=== PATIENT | male | born 1955 | race Caucasian/White ===

== ENCOUNTER 2017-05-08 15:17 | Emergency (ER) | payer OTHER ==
[~2017-05-08] VITALS: Ht 170.2 cm; Wt 78.9 kg
[2017-05-08 15:26] VITALS: Ht 170.2 cm; Wt 78.9 kg
[2017-05-09 00:18] VITALS: BP 124/79
== END 2017-05-09 00:18 | disposition home or self-care (01) ==
LOC: ED 15:17
DX: J06.9 Acute upper respiratory infection, unspecified (principal); F17.210 Nicotine dependence, cigarettes, uncomplicated; Z71.6 Tobacco abuse counseling
CPT/HCPCS: 99406; J7512; J7613; J7644